=== PATIENT | male | born 1975 | race Caucasian/White ===

== ENCOUNTER 2017-05-16 08:31 | Inpatient (IN) | payer BC ==
[~2017-05-16 08:31] MED LIST: Lactated Ringers 1,000 ML IV SCH; Lidocaine 1% 8 ML ONE; Lidocaine 1%/Sod Bicarbonate in NS 8.4% 1 ML Syringe PRN; Midazolam 1 MG/ML 2 ML SDV ONE; Morphine PF 10 MG/10 ML SDV ONE; Ondansetron 4 MG/2 ML SDV ONE; Propofol 200 MG/20 ML SDV ONE; Sodium Chloride 0.9% 10 ML Syringe FLUSH PRN; ceFAZolin 1 GM Vial ONE; fentaNYL 100 MCG/2 ML SDV ONE
--- NOTE | 2017-05-16 09:20 | PCM.PREANE ---
Preanesthetic Assessment - Procedure Proposed Procedure: R total knee replacement L knee cortisone injection - Anesthesia/Transfusion/Family Hx Anesthesia History: No Prior Anesthesia Family History of Anesthesia Reaction: No Transfusion History: No Prior Transfusion(s) - Review of Systems General: No Symptoms Pulmonary: No Symptoms Cardiovascular: Other (hyperlipidemia ) Gastrointestinal: No Symptoms Neurological: No Symptoms Other: Reports: Diabetes (DM2, gs 127 at 0710) - Physical Assessment NPO Status Date: 05/15/17 NPO Status Time: 21:30 Pulse: 48 O2 Sat by Pulse Oximetry: 96 Respiratory Rate: 16 Blood Pressure: 114/87 Temperature: 36.4 C Height: 1.78 m Weight: 117.934 kg ASA Class: 2 Mental Status: Alert & Oriented x3 Airway Class: Mallampati = 1 Dentition: Reports: Normal Dentition Thyro-Mental Finger Breadths: 3 Mouth Opening Finger Breadths: 3 ROM/Head Extension: Full Lungs: Clear to Auscultation, Normal Respiratory Effort Cardiovascular: Regular Rate, Regular Rhythm - Lab Values: Laboratory Last Values MRSA (PCR) Negative 05/04/17 12:27 - Allergies Allergies/Adverse Reactions: Allergies Allergy/AdvReac Type Severity Reaction Status Date / Time No Known Allergies Allergy Verified 05/13/17 13:20 - Blood Blood Available: No Product(s) Available: None - Anesthesia Plan Pre-Op Medication Ordered: None - Acknowledgements Anesthesia Type Planned: Spinal (with duramorph ) Pt an Appropriate Candidate for the Planned Anesthesia: Yes Alternatives and Risks of Anesthesia Discussed w Pt/Guardian: Yes Pt/Guardian Understands and Agrees with Anesthesia Plan: Yes PreAnesthesia Questionnaire HEENT History: Reports: Impaired Vision, Other (See Below) Other HEENT History: glasses, contacts Cardiovascular History: Reports: High Cholesterol Respiratory History: Reports: None Gastrointestinal History: Reports: None Genitourinary History: Reports: Renal Calculus [employer] MEMBER History: Reports: None Musculoskeletal History: Reports: None Neurological History: Reports: None Psychiatric History: Reports: None Endocrine/Metabolic History: Reports: Diabetes, Type II Hematologic History: Reports: None Immunologic History: Reports: None Oncologic (Cancer) History: Reports: None Dermatologic History: Reports: None - Past Surgical History Head Surgeries/Procedures: Reports: None Cardiovascular Surgical History: Reports: None Respiratory Surgical History: Reports: None GI Surgical History: Reports: None Female Surgical History: Reports: None Male Surgical History: Reports: None Endocrine Surgical History: Reports: None Neurological Surgical History: Reports: None Musculoskeletal Surgical History: Reports: None Oncologic Surgical History: Reports: None Dermatological Surgical History: Reports: None - SUBSTANCE USE Smoking Status *Q: Current Every Day Smoker (chewing tobacco) Tobacco Use Within Last Twelve Months: Smokeless Tobacco (27 years) Second Hand Smoke Exposure: No Days Per Week of Alcohol Use: 2 Number of Drinks Per Day: 5 Total Drinks Per Week: 10 Recreational Drug Use History: No - HOME MEDS Home Medications: Home Meds Aspirin [Pili Chewable Aspirin] 81 mg PO DAILY 05/13/17 [History] Omeprazole Magnesium [Prilosec Otc] 20 mg PO DAILY 05/13/17 [History] atorvaSTATin Calcium [Atorvastatin Calcium] 40 mg PO DAILY 05/13/17 [History] metFORMIN HCl [Metformin HCl] 500 mg PO DAILY 05/13/17 [History] - CURRENT (IN HOUSE) MEDS Current Meds: Current Medications Lactated Ringer's (Ringers, Lactated) 1,000 mls @ 125 mls/hr IV ASDIRECTED ROZ Stop: 05/16/17 23:00 Lidocaine/Sodium Bicarbonate (Buffered Lidocaine 1% In Ns 8.4%) 0.25 ml .XX ONETIME PRN PRN Reason: Prior to IV Start Stop: 05/16/17 18:00 Sodium Chloride (Saline Flush) 10 ml FLUSH ASDIRECTED PRN PRN Reason: Keep Vein Open Stop: 05/16/17 18:00 Discontinued Medications Cefazolin Sodium (Ancef) Confirm Administered Dose 2 gm .ROUTE .STK-MED ONE Stop: 05/16/17 08:06 Fentanyl (Sublimaze) Confirm Administered Dose 100 mcg .ROUTE .STK-MED ONE Stop: 05/16/17 08:07 Lidocaine HCl (Xylocaine-Mpf 1%) Confirm Administered Dose 8 mls @ as directed .ROUTE .STK-MED ONE Stop: 05/16/17 08:06 Midazolam HCl (Versed 1 Mg/Ml) Confirm Administered Dose 2 mg .ROUTE .STK-MED ONE Stop: 05/16/17 08:07 Morphine Sulfate (Duramorph Pf) Confirm Administered Dose 10 mg .ROUTE .STK-MED ONE Stop: 05/16/17 08:07 Ondansetron HCl (Zofran) Confirm Administered Dose 4 mg .ROUTE .STK-MED ONE Stop: 05/16/17 08:06 Propofol (Diprivan 20 Ml) Confirm Administered Dose 600 mg .ROUTE .STK-MED ONE Stop: 05/16/17 08:06 Propofol (Diprivan 20 Ml) Confirm Administered Dose 200 mg .ROUTE .STK-MED ONE Stop: 05/16/17 08:11
[2017-05-16] MEDS ORDERED: Ketamine 500 mg/10 ML MDV ONE (10:24)
[2017-05-16] MEDS ORDERED: Ketorolac 30 MG/ML SDV ONE (10:24)
[2017-05-16] MEDS ORDERED: Lidocaine 1% 2 ML ONE (10:48)
[2017-05-16] MEDS ORDERED: Magnesium Hydroxide 400 MG/5 ML Susp 30 ML Cup PO PRN (10:53)
[2017-05-16] MEDS ORDERED: diphenhydrAMINE 50 MG/ML SDV IVPUSH PRN ×2 (10:53→10:55)
[2017-05-16] MEDS ORDERED: Morphine 2 MG/ML Syringe IVPUSH PRN (10:53)
[2017-05-16] MEDS ORDERED: Sennosides 8.6 MG Tab PO PRN (10:53)
[2017-05-16] MEDS ORDERED: Naloxone 0.4 MG/ML SDV IVPUSH PRN (10:53)
[2017-05-16] MEDS ORDERED: Bisacodyl 5 MG Tab PO PRN (10:53)
[2017-05-16] MEDS ORDERED: Docusate Sodium 100 MG Cap PO PRN (10:53)
[2017-05-16] MEDS ORDERED: Ondansetron 4 MG/2 ML SDV IVPUSH PRN ×2 (10:53→10:55)
[2017-05-16] MEDS ORDERED: fentaNYL 100 MCG/2 ML SDV IVPUSH PRN (10:55)
[2017-05-16] MEDS ORDERED: ePHEDrine 50 MG/ML SDV IVPUSH PRN (10:55)
[2017-05-16] MEDS ORDERED: HYDROmorphone 0.5 MG/0.5 ML Syringe IVPUSH PRN (10:55)
[2017-05-16] MEDS ORDERED: Phenylephrine 1 MG in Sodium Chloride 0.9% 10 ML IV SCH (11:00)
[2017-05-16] MEDS ORDERED: Lactated Ringers 1,000 ML ONE (11:14)
[2017-05-16] MEDS: Iodine/Sodium Iodide 2% Tincture 30 ML Bottle ONE ×2 (11:21→11:54)
[2017-05-16] MEDS: ceFAZolin 1 GM Vial ONE ×2 (11:24→11:58)
[2017-05-16] MEDS: Morphine 8 MG, EPINEPHrine 0.3 MG, Cefuroxime 750 MG, Ketorolac 30 MG, Sodium Chloride ... ONE ×15 (11:25→17:34)
[2017-05-16] MEDS: Vancomycin 1 GM SDV ONE ×2 (11:26→12:08)
[2017-05-16] MEDS: Bupivacaine 0.25% 30 ML SDV ONE ×2 (11:26→12:07)
[2017-05-16] MEDS: Bupivacaine 0.25% 10 ML SDV ONE ×2 (11:27→12:52)
[2017-05-16] MEDS: Triamcinolone Acetonide 40 MG/ML 1 ML MDV ONE ×2 (11:27→12:52)
[2017-05-16] MEDS ORDERED: Midazolam 1 MG/ML 2 ML SDV ONE (12:41)
--- NOTE | 2017-05-16 13:06 | PCM.POSTAN ---
POST ANESTHESIA ASSESSMENT - MENTAL STATUS Mental Status: Alert - VITAL SIGNS Pulse Rate: 64 SaO2: 94 Resp Rate: 12 Blood Pressure: 99/46 Temperature: 36.2 C - RESPIRATORY Respiratory Status: Respiratory Rate WNL, Airway Patent, O2 Saturation Stable, Supplemental Oxygen - CARDIOVASCULAR CV Status: Pulse Rate WNL, Blood Pressure Stable - GASTROINTESTINAL GI Status: No Symptoms - POST OP HYDRATION Hydration Status: Adequate & Stable
--- NOTE | 2017-05-16 14:43 | PCM.CONS ---
H&P History of Present Illness - General Date of Service: 05/16/17 Admit Problem/Dx: Admission Diagnosis/Problem Admission Diagnosis/Problem Arthritis of knee Source of Information: Patient, Family, Old Records, Provider, RN Notes Reviewed History Limitations: Reports: Physical Impairment - History of Present Illness Initial Comments - Free Text/Narative: This is a 42-year-old, white male, with past medical history of HLD, DM2, Hx/o Renal Stones, Chews Tobacco Products and Obesity with BMI of 38 who underwent right total knee arthroplasty and left knee steroid injection post operative day zero. Patient is doing relatively well. Currently, his pain is controlled. He denies any acute issues. Hospital Medicine was consulted for postoperative care. Right Knee Pain Score (Numeric/FACES): 1 - Related Data Allergies/Adverse Reactions: Allergies Allergy/AdvReac Type Severity Reaction Status Date / Time No Known Allergies Allergy Verified 05/13/17 13:20 Home Medications: Home Meds Aspirin [Pili Chewable Aspirin] 81 mg PO DAILY 05/13/17 [History] Omeprazole Magnesium [Prilosec Otc] 20 mg PO DAILY 05/13/17 [History] atorvaSTATin Calcium [Atorvastatin Calcium] 40 mg PO DAILY 05/13/17 [History] metFORMIN HCl [Metformin HCl] 500 mg PO DAILY 05/13/17 [History] Cholecalciferol (Vitamin D3) [Vitamin D] 1 tab PO DAILY 05/16/17 [History] Past Medical History HEENT History: Reports: Impaired Vision, Other (See Below) Other HEENT History: glasses, contacts Cardiovascular History: Reports: High Cholesterol Respiratory History: Reports: None Gastrointestinal History: Reports: None Genitourinary History: Reports: Renal Calculus [employer]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 Musculoskeletal History: Reports: None Neurological History: Reports: None Psychiatric History: Reports: None Endocrine/Metabolic History: Reports: Diabetes, Type II Hematologic History: Reports: None Immunologic History: Reports: None Oncologic (Cancer) History: Reports: None Dermatologic History: Reports: None - Past Surgical History Head Surgeries/Procedures: Reports: None Cardiovascular Surgical History: Reports: None Respiratory Surgical History: Reports: None GI Surgical History: Reports: None Female Surgical History: Reports: None Male Surgical History: Reports: None Endocrine Surgical History: Reports: None Neurological Surgical History: Reports: None Musculoskeletal Surgical History: Reports: None Oncologic Surgical History: Reports: None Dermatological Surgical History: Reports: None Social & Family History - Tobacco Use Smoking Status *Q: Current Every Day Smoker (chewing tobacco) Years of Tobacco use: 30 Packs/Tins Daily: 1 Used Tobacco, but Quit: Yes Month Tobacco Last Used: current Second Hand Smoke Exposure: No - Caffeine Use Caffeine Use: Reports: Coffee - Alcohol Use Days Per Week of Alcohol Use: 2 Number of Drinks Per Day: 5 Total Drinks Per Week: 10 - Recreational Drug Use Recreational Drug Use: No H&P Review of Systems - Review of Systems: Review Of Systems: See Below General: Denies: Fever, Chills, Malaise, Weakness, Fatigue HEENT: Reports: No Symptoms Pulmonary: Denies: Shortness of Breath, Cough Cardiovascular: Denies: Chest Pain, Palpitations, Dyspnea on Exertion Gastrointestinal: Denies: Abdominal Pain, Nausea, Vomiting Genitourinary: Denies: Dysuria, Retention Musculoskeletal: Reports: No Symptoms Skin: Denies: Cyanosis, Erythema, Wound Psychiatric: Denies: Confusion, Depression, Mood Lability, Anxiety, Hallucinations Neurological: Reports: Difficulty Walking, Gait Disturbance. Denies: Confusion , Weakness Hematologic/Lymphatic: Reports: No Symptoms Immunologic: Reports: No Symptoms Exam - Exam Exam: See Below - Vital Signs Vital Signs: Last Vital Signs Temp 35.9 C 05/16/17 13:50 Pulse 45 L 05/16/17 14:05 Resp 11 L 05/16/17 14:05 BP 106/65 05/16/17 14:05 Pulse Ox 97 05/16/17 14:05 Weight: 117.934 kg - Exam General: Alert, Oriented, Cooperative, Other (Obese). No: Mild Distress HEENT: Conjunctiva Clear, EACs Clear, EOMI, Hearing Intact, Mucosa Moist & [place] , Nares Patent, Normal Nasal Septum, Posterior Pharynx Clear, Pupils Equal, Pupils Reactive Neck: Supple, Trachea Midline, +2 Carotid Pulse wo Bruit Lungs: Clear to Auscultation, Normal Respiratory Effort Cardiovascular: Regular Rate, Regular Rhythm GI/Abdominal Exam: Normal Bowel Sounds, Soft, Non-Tender, No Organomegaly, No Distention, No Abnormal Bruit, No Mass (Male) Exam: Other (indwelling natarajan catheter) Rectal (Males) Exam: Deferred Back Exam: Normal Inspection, Decreased Range of Motion Extremities: Normal Inspection, Normal Range of Motion, Non-Tender, No Pedal Edema, Normal Capillary Refill Peripheral Pulses: 3+: Posterior Tibial (L), Posterior Tibial (R), Dorsalis Pedis (L), Dorsalis Pedis (R) Skin: Warm, Dry, Intact Neuro Extensive - Mental Status: Oriented x3, Normal Cognition, Memory Intact Neuro Extensive - Motor, Sensory, Reflexes: CN II-XII Intact, Abnormal Gait Psychiatric: Alert, Normal Affect, Normal Mood - Patient Data Lab Results Last 24 hrs: Laboratory Results - last 24 hr 05/16/17 Range/Units 13:53 POC Glucose 97 (70-105) mg/dL Consult PN Assessment/Plan POD#: 0 Procedures: Procedures COMPLETE CBC W/AUTO DIFF WBC (05/09/17) COMPREHEN METABOLIC PANEL (05/03/17) GLYCOSYLATED HEMOGLOBIN TEST (05/03/17) PROTHROMBIN TIME (05/09/17) ROUTINE VENIPUNCTURE (05/09/17) THROMBOPLASTIN TIME PARTIAL (05/09/17) Problem List Initiated/Reviewed/Updated: Yes Plan: Assessment: Acute: Post-Operative Care State - Stable - Continue to monitor for hemodynamic instability S/p Right Total Knee Arthroplasty With Left Knee Cortisone Injection - Stable - DVT and Pain Management as per primary team Hx/o Chronic Bilateral Knee Pain - Pain Management as per primary team Chronic: HLD DM2 Hx/o Renal Stone Chews Tobacco Product ETOH Use Obesity with BMI of 38 Plan: He is clinically stable Routine AM labs Continue home meds PT/OT consult IS q2 awake Thank you for the opportunity to participate in the management of this patient. Requesting Provider: Dr. Denton Date Consult Requested: 05/16/17 Reason for Consult: Post-Operative Care Patient History Reviewed: Yes Admission H&P Reviewed: Yes Consult Result/Summary: Stable
--- NOTE | 2017-05-16 15:02 | CR ---
Right knee: AP and lateral views of the right knee were obtained. Comparison: No prior study. Knee prosthesis is seen. Components are aligned. Soft tissue air is noted from the surgical procedure. Underlying bony structures are intact. Impression: 1. Recently placed right knee prosthesis. No acute bony abnormality is seen. Diagnostic code #2
[2017-05-16] MEDS ORDERED: Ketorolac 15 MG/ML SDV IVPUSH PRN (18:00)
[2017-05-16] MEDS ORDERED: LORazepam 2 MG/ML MDV IVPUSH PRN (18:11)
[2017-05-16] MEDS ORDERED: hydrALAZINE 20 MG/ML SDV IVPUSH PRN (18:11)
[2017-05-16] MEDS ORDERED: Metoprolol Tartrate 5 MG/5 ML SDV IVPUSH PRN (18:11)
[2017-05-16] MEDS: ceFAZolin 2 GM in Premix Bag 1 BAG IV SCH (18:55)
[2017-05-16] MEDS: Acetaminophen/oxyCODONE 325-5 MG Tab PO PRN (20:53)
[2017-05-16] MEDS: Famotidine 20 MG Tab PO SCH (20:56)
[2017-05-17] MEDS: ceFAZolin 2 GM in Premix Bag 1 BAG IV SCH ×2 (01:01→10:44)
[2017-05-17] MEDS: Acetaminophen/oxyCODONE 325-5 MG Tab PO PRN ×3 (06:25→14:46)
[2017-05-17] MEDS ORDERED: Pantoprazole 40 MG Tab.CR PO SCH (07:00)
[2017-05-17] MEDS ORDERED: Magnesium Oxide 400 MG Tab PO ONE (08:30)
[2017-05-17] MEDS ORDERED: metFORMIN 500 MG Tab PO SCH (09:00)
[2017-05-17] MEDS: Famotidine 20 MG Tab PO SCH (09:00)
[2017-05-17] MEDS ORDERED: Aspirin 325 MG Tab.EC PO SCH (09:00)
[2017-05-17] MEDS ORDERED: Cholecalciferol (Vitamin D3) 1,000 Unit Tab PO SCH (09:00)
[2017-05-17] MEDS ORDERED: Rosuvastatin 10 MG Tab PO SCH (09:00)
--- NOTE | 2017-05-17 09:10 | PCM48HPAN ---
Post Anesthesia Note - EVALUATION WITHIN 48HRS OF ANESTHETIC Vital Signs in Normal Range: Yes Patient Participated in Evaluation: Yes Respiratory Function Stable: Yes Airway Patent: Yes Cardiovascular Function Stable: Yes Hydration Status Stable: Yes Pain Control Satisfactory: Yes Nausea and Vomiting Control Satisfactory: Yes Mental Status Recovered: Yes - COMMENTS/OBSERVATIONS Free Text/Narrative:: Patient reports no problems at this time. Up and walking around. Denies headache , back pain, or numbness and tingling sensations to lower extremities.
--- NOTE | 2017-05-17 10:38 | PCM.CONSN ---
- General Info Date of Service: 05/17/17 Admission Dx/Problem (Free Text): Admission Diagnosis/Problem Admission Diagnosis/Problem Arthritis of knee Functional Status: Reports: Pain Controlled, Tolerating Diet, Ambulating, Urinating, Incentive Spirometry - Review of Systems General: Reports: No Symptoms HEENT: Reports: No Symptoms Pulmonary: Reports: No Symptoms Cardiovascular: Reports: No Symptoms Gastrointestinal: Reports: No Symptoms Genitourinary: Reports: No Symptoms Musculoskeletal: Reports: Leg Pain (mild right knee radiating up leg ). Denies : Neck Pain, Arm Pain, Hand Pain, Back Pain, Foot Pain, Joint Pain, Joint Swelling Skin: Reports: No Symptoms Neurological: Reports: Difficulty Walking, Gait Disturbance. Denies: Confusion , Dizziness, Headache Psychiatric: Reports: No Symptoms Systems Review Comment:: He has no new complaints and feels he is progressing well. He would like to be discharged today and his is available to take him home when discharged. - Patient Data Vitals - Most Recent: Last Vital Signs Temp 97.2 F 05/17/17 07:22 Pulse 49 L 05/17/17 07:22 Resp 12 05/17/17 07:22 BP 122/57 L 05/17/17 07:22 Pulse Ox 94 L 05/17/17 07:22 Weight - Most Recent: 271 lb 1.6 oz I&O - Last 24 Hours: Intake & Output 05/16/17 05/17/17 05/17/17 22:59 06:59 14:59 Intake Total 825 1400 Output Total 700 300 Balance 125 1100 Lab Results Last 24 Hours: Laboratory Results - last 24 hr 05/16/17 05/17/17 05/17/17 Range/Units 13:53 06:15 06:15 WBC 11.11 H (4.23-9.07) K/mm3 RBC 4.76 (4.63-6.08) M/mm3 Hgb 14.0 (13.7-17.5) gm/L Hct 41.1 (40.1-51.0) % MCV 86.3 (79.0-92.2) fl MCH 29.4 (25.7-32.2) pg MCHC 34.1 (32.2-35.5) g/dl RDW Std Deviation 40.9 (35.1-43.9) fL Plt Count 171 (163-337) K/mm3 MPV 11.8 (9.4-12.3) fl Neut % (Auto) 89.0 H (34.0-67.9) % Lymph % (Auto) 5.2 L (21.8-53.1) % Dolores % (Auto) 5.5 (5.3-12.2) % Eos % (Auto) 0 L (0.8-7.0) Baso % (Auto) 0.1 (0.1-1.2) % Neut # (Auto) 9.89 H (1.78-5.38) K/mm3 Lymph # (Auto) 0.58 L (1.32-3.57) K/mm3 Dolores # (Auto) 0.61 (0.30-0.82) K/mm3 Eos # (Auto) 0.00 L (0.04-0.54) K/mm3 Baso # (Auto) 0.01 (0.01-0.08) K/mm3 Manual Slide Review Abnormal smear Sodium 139 (136-145) mEq/L Potassium 4.4 (3.5-5.1) mEq/L Chloride 103 (98-107) mEq/L Carbon Dioxide 28 (21-32) mEq/L Anion Gap 12.4 (5-15) BUN 10 (7-18) mg/dL Creatinine 0.8 (0.7-1.3) mg/dL Est Cr Clr Drug Dosing 121.67 mL/min Estimated GFR (MDRD) > 60 (>60) mL/min BUN/Creatinine Ratio 12.5 L (14-18) Glucose 162 H (74-106) mg/dL POC Glucose 97 (70-105) mg/dL Calcium 9.0 (8.5-10.1) mg/dL Magnesium (1.8-2.4) mg/dl Total Bilirubin 0.6 (0.2-1.0) mg/dL AST 20 (15-37) U/L ALT 29 (16-63) U/L Alkaline Phosphatase 58 (46-116) U/L Total Protein 6.6 (6.4-8.2) g/dl Albumin 3.5 (3.4-5.0) g/dl Globulin 3.1 gm/dL Albumin/Globulin Ratio 1.1 (1-2) 09/19/17 Range/Units 06:15 WBC (4.23-9.07) K/mm3 RBC (4.63-6.08) M/mm3 Hgb (13.7-17.5) gm/L Hct (40.1-51.0) % MCV (79.0-92.2) fl MCH (25.7-32.2) pg MCHC (32.2-35.5) g/dl RDW Std Deviation (35.1-43.9) fL Plt Count (163-337) K/mm3 MPV (9.4-12.3) fl Neut % (Auto) (34.0-67.9) % Lymph % (Auto) (21.8-53.1) % Dolores % (Auto) (5.3-12.2) % Eos % (Auto) (0.8-7.0) Baso % (Auto) (0.1-1.2) % Neut # (Auto) (1.78-5.38) K/mm3 Lymph # (Auto) (1.32-3.57) K/mm3 Dolores # (Auto) (0.30-0.82) K/mm3 Eos # (Auto) (0.04-0.54) K/mm3 Baso # (Auto) (0.01-0.08) K/mm3 Manual Slide Review Sodium (136-145) mEq/L Potassium (3.5-5.1) mEq/L Chloride (98-107) mEq/L Carbon Dioxide (21-32) mEq/L Anion Gap (5-15) BUN (7-18) mg/dL Creatinine (0.7-1.3) mg/dL Est Cr Clr Drug Dosing mL/min Estimated GFR (MDRD) (>60) mL/min BUN/Creatinine Ratio (14-18) Glucose (74-106) mg/dL POC Glucose (70-105) mg/dL Calcium (8.5-10.1) mg/dL Magnesium 1.7 L (1.8-2.4) mg/dl Total Bilirubin (0.2-1.0) mg/dL AST (15-37) U/L ALT (16-63) U/L Alkaline Phosphatase (46-116) U/L Total Protein (6.4-8.2) g/dl Albumin (3.4-5.0) g/dl Globulin gm/dL Albumin/Globulin Ratio (1-2) Med Orders - Current: Current Medications Aspirin (Ecotrin) 325 mg PO BID [facility] Bisacodyl (Dulcolax) 10 mg PO DAILY PRN PRN Reason: Constipation Cholecalciferol (Vitamin D3) 5,000 units PO DAILY [facility] Last Admin: 05/17/17 08:57 Dose: 5,000 units Diphenhydramine HCl (Benadryl) 25 mg IVPUSH Q4H PRN PRN Reason: Nausea Last Admin: 05/16/17 13:05 Dose: 25 mg Docusate Sodium (Colace) 100 mg PO BID PRN PRN Reason: Constipation Famotidine (Pepcid) 20 mg PO BID [facility] Last Admin: 05/17/17 09:00 Dose: 20 mg Hydralazine HCl (Apresoline) 20 mg IVPUSH Q4H PRN PRN Reason: Hypertension Ketorolac Tromethamine (Toradol) 15 mg IVPUSH Q8H PRN PRN Reason: Pain Last Admin: 05/17/17 04:30 Dose: 15 mg Lorazepam (Ativan) 2 mg IVPUSH Q4H PRN PRN Reason: Seizures Magnesium Hydroxide (Milk Of Magnesia) 30 ml PO BID PRN PRN Reason: Constipation Magnesium Sulfate (Pharmacy To Dose - Magnesium Replacement) 0 dose .XX ASDIRECTED PRN PRN Reason: RX TO WATCH MAG LEVELS Metformin HCl (Glucophage) 500 mg PO DAILY [facility] Last Admin: 05/17/17 08:59 Dose: 500 mg Metoprolol Tartrate (Lopressor) 5 mg IVPUSH Q4H PRN PRN Reason: Tachycardia Morphine Sulfate (Morphine) 2 mg IVPUSH Q2H PRN PRN Reason: Breakthrough Pain Naloxone HCl (Narcan) 0.1 mg IVPUSH Q5M PRN PRN Reason: Oversedation Ondansetron HCl (Zofran) 4 mg IVPUSH Q6H PRN PRN Reason: Nausea/Vomiting Oxycodone/Acetaminophen (Percocet 325-5 Mg) 2 tab PO Q4H PRN PRN Reason: Pain Last Admin: 05/17/17 10:23 Dose: 2 tab Pantoprazole Sodium (Protonix) 40 mg PO DAILY@0700 [facility] Last Admin: 05/17/17 06:25 Dose: 40 mg Potassium Chloride (Pharmacy To Dose - Potassium Replacement) 0 dose .XX ASDIRECTED PRN PRN Reason: RX TO WATCH K LEVELS Rosuvastatin Calcium (Crestor) 10 mg PO DAILY [facility] Last Admin: 05/17/17 08:58 Dose: 10 mg Senna (Senna) 8.6 mg PO BID PRN PRN Reason: Constipation Discontinued Medications Bupivacaine HCl (Sensorcaine-Mpf 0.25%) Confirm Administered Dose 10 ml .ROUTE .STK-MED ONE Stop: 05/16/17 09:15 Last Admin: 05/16/17 12:52 Dose: 4 ml Bupivacaine HCl (Marcaine 0.25%) Confirm Administered Dose 30 ml .ROUTE .STK- MED ONE Stop: 05/16/17 09:15 Last Admin: 05/16/17 12:07 Dose: 30 ml Cefazolin Sodium (Ancef) Confirm Administered Dose 2 gm .ROUTE .STK-MED ONE Stop: 05/16/17 08:06 Cefazolin Sodium (Ancef) Confirm Administered Dose 2 gm .ROUTE .STK-MED ONE Stop: 05/16/17 09:14 Last Admin: 05/16/17 11:58 Dose: 2 gm Morphine Sulfate 8 mg/Epinephrine HCl 0.3 mg/Cefuroxime Sodium 750 mg/Ketorolac Tromethamine 30 mg/Sodium Chloride 17.9 ml 0 mg .XX ONETIME ONE Stop: 05/16/17 10:50 Last Admin: 05/16/17 17:34 Dose: Not Given Diphenhydramine HCl (Benadryl) 25 mg IVPUSH Q6H PRN PRN Reason: pruritis Stop: 05/16/17 14:00 Ephedrine Sulfate (Ephedrine Sulfate) 5 mg IVPUSH ASDIRECTED PRN PRN Reason: Hypotension Stop: 05/16/17 14:00 Fentanyl (Sublimaze) Confirm Administered Dose 100 mcg .ROUTE .STK-MED ONE Stop: 05/16/17 08:07 Fentanyl (Sublimaze) 50 mcg IVPUSH Q5M PRN PRN Reason: Pain Stop: 05/16/17 14:00 Hydromorphone HCl (Dilaudid) 0.5 mg IVPUSH Q15M PRN PRN Reason: severe pain Stop: 05/16/17 14:00 Lactated Ringer's (Ringers, Lactated) 1,000 mls @ 125 mls/hr IV ASDIRECTED [facility] Stop: 05/16/17 23:00 Last Admin: 05/16/17 09:05 Dose: 125 mls/hr Lidocaine HCl (Xylocaine-Mpf 1%) Confirm Administered Dose 8 mls @ as directed .ROUTE .STK-MED ONE Stop: 05/16/17 08:06 Lidocaine HCl (Xylocaine-Mpf 1%) Confirm Administered Dose 2 mls @ as directed .ROUTE .STK-MED ONE Stop: 05/16/17 10:49 Phenylephrine HCl 1 mg/ Sodium (Chloride) 10.1 mls @ 1 mls/sec IV TITRATE [facility] PRN Reason: Protocol Stop: 05/16/17 14:00 Cefazolin Sodium/Dextrose 2 gm (/ Premix) 50 mls @ 100 mls/hr IV Q8H [facility] Stop: 05/17/17 10:29 Last Admin: 05/17/17 01:01 Dose: 100 mls/hr Lactated Ringer's (Ringers, Lactated) Confirm Administered Dose 1,000 mls @ as directed .ROUTE .STK-MED ONE Stop: 05/16/17 11:15 Iodine (Iodine 2% Mild Tincture) Confirm Administered Dose 30 ml .ROUTE .STK- MED ONE Stop: 05/16/17 09:15 Last Admin: 05/16/17 11:54 Dose: 18 ml Ketamine HCl (Ketalar) Confirm Administered Dose 500 mg .ROUTE .STK-MED ONE Stop: 05/16/17 10:25 Ketorolac Tromethamine (Toradol) Confirm Administered Dose 30 mg .ROUTE .STK- MED ONE Stop: 05/16/17 10:25 Lidocaine/Sodium Bicarbonate (Buffered Lidocaine 1% In Ns 8.4%) 0.25 ml .XX ONETIME PRN PRN Reason: Prior to IV Start Stop: 05/16/17 18:00 Last Admin: 05/16/17 09:04 Dose: 0.25 ml Magnesium Oxide (Magnesium Oxide) 800 mg PO ONETIME ONE Stop: 05/17/17 08:31 Last Admin: 05/17/17 08:59 Dose: 800 mg Midazolam HCl (Versed 1 Mg/Ml) Confirm Administered Dose 2 mg .ROUTE .STK-MED ONE Stop: 05/16/17 08:07 Midazolam HCl (Versed 1 Mg/Ml) Confirm Administered Dose 2 mg .ROUTE .STK-MED ONE Stop: 05/16/17 12:42 Morphine Sulfate (Duramorph Pf) Confirm Administered Dose 10 mg .ROUTE .STK-MED ONE Stop: 05/16/17 08:07 Ondansetron HCl (Zofran) Confirm Administered Dose 4 mg .ROUTE .STK-MED ONE Stop: 05/16/17 08:06 Ondansetron HCl (Zofran) 4 mg IVPUSH ONETIME PRN PRN Reason: Nausea/Vomiting Stop: 05/16/17 14:00 Propofol (Diprivan 20 Ml) Confirm Administered Dose 600 mg .ROUTE .STK-MED ONE Stop: 05/16/17 08:06 Propofol (Diprivan 20 Ml) Confirm Administered Dose 200 mg .ROUTE .STK-MED ONE Stop: 05/16/17 08:11 Sodium Chloride (Saline Flush) 10 ml FLUSH ASDIRECTED PRN PRN Reason: Keep Vein Open Stop: 05/16/17 18:00 Tranexamic Acid (Cyklokapron) Confirm Administered Dose 1,000 mg .ROUTE .STK- MED ONE Stop: 05/16/17 09:15 Last Admin: 05/16/17 12:15 Dose: 1,000 mg Triamcinolone Acetonide (Kenalog-40) Confirm Administered Dose 80 mg .ROUTE .STK -MED ONE Stop: 05/16/17 09:14 Last Admin: 05/16/17 12:52 Dose: 80 mg Vancomycin HCl (Vancomycin) Confirm Administered Dose 1 gm .ROUTE .STK-MED ONE Stop: 05/16/17 09:15 Last Admin: 05/16/17 12:08 Dose: 1 gm - Exam Quality Assessment: DVT Prophylaxis General: Alert, Oriented, Cooperative HEENT: Pupils Equal, Pupils Reactive, Mucous Membr. Moist/[address] Lane Neck: Supple, Trachea Midline, No JVD Lungs: Clear to Auscultation, Decreased Breath Sounds Cardiovascular: Regular Rate, Regular Rhythm GI/Abdominal Exam: Normal Bowel Sounds, Soft, Non-Tender, No Distention, No Mass (Male) Exam: Deferred Back Exam: Normal Inspection, Full Range of Motion Extremities: Normal Inspection, Normal Range of Motion (left leg and bilateral arms ), Leg Pain (right leg ), Limited Range of Motion (right leg ). No: Increased Warmth Peripheral Pulses: 2+: Radial (L), Radial (R), Dorsalis Pedis (L), Dorsalis Pedis (R) Skin: Warm, Dry, Intact Wound/Incisions: Dressing Dry and Intact, No Drainage Neurological: Strength Equal Bilateral, Sensation Intact. No: Normal Gait Psy/Mental Status: Alert, Normal Affect, Normal Mood Physical Findings Comments:: He is clinically stable. No complaints at this time. Consult PN Assessment/Plan POD#: 1 Procedures: Procedures COMPLETE CBC W/AUTO DIFF WBC (05/09/17) COMPREHEN METABOLIC PANEL (05/03/17) GLYCOSYLATED HEMOGLOBIN TEST (05/03/17) PROTHROMBIN TIME (05/09/17) ROUTINE VENIPUNCTURE (05/09/17) THROMBOPLASTIN TIME PARTIAL (05/09/17) (1) Status post right knee replacement SNOMED Code(s): 537476220, 530472799, 330635485 Code(s): Z96.651 - PRESENCE OF RIGHT ARTIFICIAL KNEE JOINT Priority: High Current Visit: Yes (2) Diabetes SNOMED Code(s): 12555912 Code(s): E11.9 - TYPE 2 DIABETES MELLITUS WITHOUT COMPLICATIONS Priority: High Current Visit: Yes Qualifiers: Diabetes mellitus type: type 2 Diabetes mellitus complication status: with unspecified complications Diabetes mellitus skilled nursing insulin use: unspecified termite helper insulin use status Qualified Code(s): E11.8 - Type 2 diabetes mellitus with unspecified complications (3) Tobacco use disorder SNOMED Code(s): 907628061, 087210353 Code(s): F17.200 - NICOTINE DEPENDENCE, UNSPECIFIED, UNCOMPLICATED Priority : Low Current Visit: Yes (4) Hyperlipidemia SNOMED Code(s): 86334913 Code(s): E78.5 - HYPERLIPIDEMIA, UNSPECIFIED Priority: Low Current Visit : No (5) Obesity (BMI 30-39.9) SNOMED Code(s): 593325950, 159127753 Code(s): E66.9 - OBESITY, UNSPECIFIED Priority: Low Current Visit: No Problem List Initiated/Reviewed/Updated: Yes Plan: Plan: Assessment: Acute: Post-Operative Care State - Stable - Continue to monitor for hemodynamic instability - Hgb 14 - Plt 171 S/p Right Total Knee Arthroplasty With Left Knee Cortisone Injection - Stable - DVT and Pain Management as per primary team Hx/o Chronic Bilateral Knee Pain - Pain Management as per primary team Chronic: HLD DM2 Hx/o Renal Stone Chews Tobacco Product - will provide cessation materials ETOH Use Obesity with BMI of 38 Plan: He is clinically stable Routine AM labs Continue home meds PT/OT consult IS q2 awake Thank you for the opportunity to participate in the management of this patient. Requesting Provider: Dr. Denton Date Consult Requested: 05/16/17 Reason for Consult: Post-Operative Care Patient History Reviewed: Yes Admission H&P Reviewed: Yes Consult Result/Summary: Stable From a medical standpoint this patient is clear for discharge. Thank you!
[2017-05-17 13:31] VITALS: BP 128/81
--- NOTE | 2017-05-19 15:04 | PCM.DCSUM1 ---
Discharge Summary - Hospital Course Brief History: Geremias is a 42 yo male who underwent right TKA with left knee injection with Dr. Denton on 05-16-2017. The procedure was completed under spinal anesthesia. The pt tolerated the procedure well and was admitted to the Medical -Surgical Unit. Medical management was provided by the Hospitalist service. The pt's Hospital course was uneventful. The pt's Hgb on POD#1 was 14.0. On POD#1, 325mg BID was initiated for VTE prophylaxis. SCDs and TEDs were also ordered. A Mepilex dressing was placed at the incision site at the time of surgery and remained clean and dry. The pt participated in P.T. and O.T. and progressed well. The pt was allowed to WBAT. On POD#1, the pt was deemed appropriate to discharge to home. - Discharge Data Discharge Date: 05/17/17 Discharge Disposition: Home, Self-Care 01 Condition: Good - Patient Summary/Data Consults: Consultations 05/16/17 10:53 Consult to Case Management [CONS] Routine Consult to Physician [CONS] Routine OT Evaluation and Treatment [CONS] Routine 05/16/17 10:57 PT Evaluation and Treatment [CONS] Routine - Patient Instructions Diet: Usual Diet as Tolerated Activity: Apply Ice, As Tolerated, Elevate Extremity, Full Weight Bearing Driving: Do Not Drive Showering/Bathing: May Shower Wound/Incision Care: Keep Operative Site/Wound Site Clean and Dry, Do NOT Change Dressing Notify Provider of: Fever, Increased Pain, Swelling and Redness, Drainage, Nausea and/or Vomiting Other/Special Instructions: Please get up and moving around every hour while awake. This helps to prevent blood clots. Please use your walker and have help as needed. Take a 325mg ASPIRIN TWICE DAILY. This also helps to prevent blood clots. The aspirin is being used for blood clot prevention and not for pain management, so please do not miss a dose of the medication. Do the exercises you were taught in the Hospital. Schedule for P.T. Use the pain medication as needed. The medication may cause drowsiness and constipation. Contact your primary care provider for instructions if you are constipated. You may use a stool softener like docusate sodium or Colace 100mg twice daily and/or a laxative like Miralax daily for constipation. Use the ice machine often. Elevate the limb to decrease swelling. Keep the Mepilex dressing in place until follow-up at the Clinic. Notify the Clinic if the dressing is saturated. Wear the MEKHI hose during the day and you may remove these at night. Eat a diet high in protein as this well help with healing. Schedule an appointment with your primary care provider for 'routine post-op care'. Call the Clinic with questions or concerns - [phone]. - Discharge Plan Prescriptions/Med Rec: Acetaminophen/oxyCODONE [Percocet 325-5 MG] 2 tab PO Q4H PRN #60 tablet PRN Reason: Pain Aspirin [Ecotrin] 325 mg PO BID #84 tab.ec Home Medications: Home Meds Omeprazole Magnesium [Prilosec Otc] 20 mg PO DAILY 05/13/17 [History] atorvaSTATin Calcium [Atorvastatin Calcium] 40 mg PO DAILY 05/13/17 [History] metFORMIN HCl [Metformin HCl] 500 mg PO DAILY 05/13/17 [History] Cholecalciferol (Vitamin D3) [Vitamin D] 1 tab PO DAILY 05/16/17 [History] Acetaminophen/oxyCODONE [Percocet 325-5 MG] 2 tab PO Q4H PRN #60 tablet [Rx] Aspirin [Ecotrin] 325 mg PO BID #84 tab.ec 05/17/17 [Rx] Patient Handouts: Cancer of the Tongue, Total Knee Replacement, Care After, [id number]-Hhlg, Total Knee Replacement, Tkdd-[id number], Smokeless Tobacco Use, Aspirin, ASA oral tablets, Knee Rehabilitation Guidelines Following Surgery, Tobacco Use Disorder, 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 Follow-up with on 05/24/17 at 1:00pm. Please check in at 12:45pm. 2. Follow-up with Elaina Buchanan PA-C on 05/31/17 at 1:15pm. Please check in at 1: 00pm.) - Patient Data Vitals - Most Recent: Last Vital Signs Temp 97.2 F 05/17/17 12:19 Pulse 54 L 05/17/17 12:19 Resp 20 05/17/17 12:19 BP 128/81 09/19/17 12:19 Pulse Ox 95 05/17/17 12:19 Weight - Most Recent: 271 lb 1.6 oz Med Orders - Current: Current Medications Discontinued Medications Aspirin (Ecotrin) 325 mg PO BID [facility] Last Admin: 05/17/17 09:00 Dose: 325 mg Bisacodyl (Dulcolax) 10 mg PO DAILY PRN PRN Reason: Constipation Bupivacaine HCl (Sensorcaine-Mpf 0.25%) Confirm Administered Dose 10 ml .ROUTE .STK-MED ONE Stop: 05/16/17 09:15 Last Admin: 05/16/17 12:52 Dose: 4 ml Bupivacaine HCl (Marcaine 0.25%) Confirm Administered Dose 30 ml .ROUTE .STK- MED ONE Stop: 05/16/17 09:15 Last Admin: 05/16/17 12:07 Dose: 30 ml Cefazolin Sodium (Ancef) Confirm Administered Dose 2 gm .ROUTE .STK-MED ONE Stop: 05/16/17 08:06 Cefazolin Sodium (Ancef) Confirm Administered Dose 2 gm .ROUTE .STK-MED ONE Stop: 05/16/17 09:14 Last Admin: 05/16/17 11:58 Dose: 2 gm Cholecalciferol (Vitamin D3) 5,000 units PO DAILY [facility] Last Admin: 05/17/17 08:57 Dose: 5,000 units Morphine Sulfate 8 mg/Epinephrine HCl 0.3 mg/Cefuroxime Sodium 750 mg/Ketorolac Tromethamine 30 mg/Sodium Chloride 17.9 ml 0 mg .XX ONETIME ONE Stop: 05/16/17 10:50 Last Admin: 05/16/17 17:34 Dose: Not Given Diphenhydramine HCl (Benadryl) 25 mg IVPUSH Q6H PRN PRN Reason: pruritis Stop: 05/16/17 14:00 Diphenhydramine HCl (Benadryl) 25 mg IVPUSH Q4H PRN PRN Reason: Nausea Last Admin: 05/16/17 13:05 Dose: 25 mg Docusate Sodium (Colace) 100 mg PO BID PRN PRN Reason: Constipation Ephedrine Sulfate (Ephedrine Sulfate) 5 mg IVPUSH ASDIRECTED PRN PRN Reason: Hypotension Stop: 05/16/17 14:00 Famotidine (Pepcid) 20 mg PO BID [facility] Last Admin: 05/17/17 09:00 Dose: 20 mg Fentanyl (Sublimaze) Confirm Administered Dose 100 mcg .ROUTE .STK-MED ONE Stop: 05/16/17 08:07 Fentanyl (Sublimaze) 50 mcg IVPUSH Q5M PRN PRN Reason: Pain Stop: 05/16/17 14:00 Hydralazine HCl (Apresoline) 20 mg IVPUSH Q4H PRN PRN Reason: Hypertension Hydromorphone HCl (Dilaudid) 0.5 mg IVPUSH Q15M PRN PRN Reason: severe pain Stop: 05/16/17 14:00 Lactated Ringer's (Ringers, Lactated) 1,000 mls @ 125 mls/hr IV ASDIRECTED [facility] Stop: 05/16/17 23:00 Last Admin: 05/16/17 09:05 Dose: 125 mls/hr Lidocaine HCl (Xylocaine-Mpf 1%) Confirm Administered Dose 8 mls @ as directed .ROUTE .STK-MED ONE Stop: 05/16/17 08:06 Lidocaine HCl (Xylocaine-Mpf 1%) Confirm Administered Dose 2 mls @ as directed .ROUTE .STK-MED ONE Stop: 05/16/17 10:49 Phenylephrine HCl 1 mg/ Sodium (Chloride) 10.1 mls @ 1 mls/sec IV TITRATE [facility] PRN Reason: Protocol Stop: 05/16/17 14:00 Cefazolin Sodium/Dextrose 2 gm (/ Premix) 50 mls @ 100 mls/hr IV Q8H [facility] Stop: 05/17/17 10:29 Last Admin: 05/17/17 10:44 Dose: 100 mls/hr Lactated Ringer's (Ringers, Lactated) Confirm Administered Dose 1,000 mls @ as directed .ROUTE .STK-MED ONE Stop: 05/16/17 11:15 Iodine (Iodine 2% Mild Tincture) Confirm Administered Dose 30 ml .ROUTE .STK- MED ONE Stop: 05/16/17 09:15 Last Admin: 05/16/17 11:54 Dose: 18 ml Ketamine HCl (Ketalar) Confirm Administered Dose 500 mg .ROUTE .STK-MED ONE Stop: 05/16/17 10:25 Ketorolac Tromethamine (Toradol) Confirm Administered Dose 30 mg .ROUTE .STK- MED ONE Stop: 05/16/17 10:25 Ketorolac Tromethamine (Toradol) 15 mg IVPUSH Q8H PRN PRN Reason: Pain Last Admin: 05/17/17 04:30 Dose: 15 mg Lidocaine/Sodium Bicarbonate (Buffered Lidocaine 1% In Ns 8.4%) 0.25 ml .XX ONETIME PRN PRN Reason: Prior to IV Start Stop: 05/16/17 18:00 Last Admin: 05/16/17 09:04 Dose: 0.25 ml Lorazepam (Ativan) 2 mg IVPUSH Q4H PRN PRN Reason: Seizures Magnesium Hydroxide (Milk Of Magnesia) 30 ml PO BID PRN PRN Reason: Constipation Magnesium Oxide (Magnesium Oxide) 800 mg PO ONETIME ONE Stop: 05/17/17 08:31 Last Admin: 05/17/17 08:59 Dose: 800 mg Magnesium Sulfate (Pharmacy To Dose - Magnesium Replacement) 0 dose .XX ASDIRECTED PRN PRN Reason: RX TO WATCH MAG LEVELS Metformin HCl (Glucophage) 500 mg PO DAILY [facility] Last Admin: 05/17/17 08:59 Dose: 500 mg Metoprolol Tartrate (Lopressor) 5 mg IVPUSH Q4H PRN PRN Reason: Tachycardia Midazolam HCl (Versed 1 Mg/Ml) Confirm Administered Dose 2 mg .ROUTE .STK-MED ONE Stop: 05/16/17 08:07 Midazolam HCl (Versed 1 Mg/Ml) Confirm Administered Dose 2 mg .ROUTE .STK-MED ONE Stop: 05/16/17 12:42 Morphine Sulfate (Duramorph Pf) Confirm Administered Dose 10 mg .ROUTE .STK-MED ONE Stop: 05/16/17 08:07 Morphine Sulfate (Morphine) 2 mg IVPUSH Q2H PRN PRN Reason: Breakthrough Pain Naloxone HCl (Narcan) 0.1 mg IVPUSH Q5M PRN PRN Reason: Oversedation Ondansetron HCl (Zofran) Confirm Administered Dose 4 mg .ROUTE .STK-MED ONE Stop: 05/16/17 08:06 Ondansetron HCl (Zofran) 4 mg IVPUSH ONETIME PRN PRN Reason: Nausea/Vomiting Stop: 05/16/17 14:00 Ondansetron HCl (Zofran) 4 mg IVPUSH Q6H PRN PRN Reason: Nausea/Vomiting Oxycodone/Acetaminophen (Percocet 325-5 Mg) 2 tab PO Q4H PRN PRN Reason: Pain Last Admin: 05/17/17 14:46 Dose: 2 tab Pantoprazole Sodium (Protonix) 40 mg PO DAILY@0700 [facility] Last Admin: 05/17/17 06:25 Dose: 40 mg Potassium Chloride (Pharmacy To Dose - Potassium Replacement) 0 dose .XX ASDIRECTED PRN PRN Reason: RX TO WATCH K LEVELS Propofol (Diprivan 20 Ml) Confirm Administered Dose 600 mg .ROUTE .STK-MED ONE Stop: 05/16/17 08:06 Propofol (Diprivan 20 Ml) Confirm Administered Dose 200 mg .ROUTE .STK-MED ONE Stop: 05/16/17 08:11 Rosuvastatin Calcium (Crestor) 10 mg PO DAILY [facility] Last Admin: 05/17/17 08:58 Dose: 10 mg Senna (Senna) 8.6 mg PO BID PRN PRN Reason: Constipation Sodium Chloride (Saline Flush) 10 ml FLUSH ASDIRECTED PRN PRN Reason: Keep Vein Open Stop: 05/16/17 18:00 Tranexamic Acid (Cyklokapron) Confirm Administered Dose 1,000 mg .ROUTE .STK- MED ONE Stop: 05/16/17 09:15 Last Admin: 05/16/17 12:15 Dose: 1,000 mg Triamcinolone Acetonide (Kenalog-40) Confirm Administered Dose 80 mg .ROUTE .STK -MED ONE Stop: 05/16/17 09:14 Last Admin: 05/16/17 12:52 Dose: 80 mg Vancomycin HCl (Vancomycin) Confirm Administered Dose 1 gm .ROUTE .STK-MED ONE Stop: 05/16/17 09:15 Last Admin: 05/16/17 12:08 Dose: 1 gm *Q Meaningful Use (DIS) - VTE *Q VTE Criteria *Q: - Stroke *Q Stroke Criteria *Q: - AMI *Q AMI Criteria *Q:
--- NOTE | 2017-05-26 22:02 | PCM.OPNOTE ---
- General Post-Op/Procedure Note Date of Surgery/Procedure: 05/16/17 Operative Procedure(s): right total knee arthroplasty with left knee corticosteroid injection Pre Op Diagnosis: bilateral knee osteoarthrosis Post-Op Diagnosis: Same Anesthesia Technique: Local, MAC, Spinal Primary Surgeon: Nazario Denton Anesthesia Provider: Ana Luisa Allen Paste Maker: Elaina Buchanan Paste Maker: Marilee Jones EBL in mLs: 200 Complications: None Condition: Good
--- NOTE | 2017-05-26 22:51 | OR ---
DATE OF OPERATION: 05/16/2017 SURGEON: Nazario Denton MD OPERATION PERFORMED: Right total knee arthroplasty with left knee corticosteroid injection. PREOPERATIVE DIAGNOSIS: Bilateral knee osteoarthrosis. POSTOPERATIVE DIAGNOSIS: Bilateral knee osteoarthrosis. ANESTHESIA: Local MAC with spinal. ANESTHESIA PROVIDER: Ana Luisa Allen CRNA. ASSISTANTS: 1. Elaina Buchanan PA-C. 2. Marilee Jones LPN. ESTIMATED BLOOD LOSS: 200 mL. COMPLICATIONS: None. CONDITION: Stable. IMPLANT: 1. Crys size 6 press-fit PS femur. 2. Crys size 5 press-fit universal tibial baseplate. 3. Crys size 5, 9 mm PS X3 polyethylene. 4. [place] 32 x 10 mm asymmetric press-fit patella. DESCRIPTION OF PROCEDURE: The patient was identified in the preop holding area. Proper site was marked and identified by the surgeon. The patient was taken back to the operating theater where after adequate anesthesia, the patient's right lower extremity had a nonsterile tourniquet applied and was then sterilely prepped and draped in the usual sterile fashion. OR time-out was performed. The patient received 2 g IV Ancef. The right lower extremity was then exsanguinated. Tourniquet was insufflated to 250 mmHg. Standard skin incision was made, and medial parapatellar arthrotomy was then created. Deep fibers of the MCL were raised, and the anterior fat pad was resected. Attention was turned to the patella. Patella measured a 24 and resected to 14 for a 32 x 10 mm patella. Drill holes were then drilled and found to be in an adequate position. Attention was turned to the distal femur. Drill hole was placed in the distal femur just anterior to the PCL insertion. Intramedullary distal femoral cutting guide was then placed and 8 mm was resected off the distal femur. It was found to be an adequate resection. Sizing guide was placed. It was found to be a size 6 epicondylar access. Holes were then drilled using Morgan's line and epicondyles as reference. A 4-in-1 cutting block was then placed. Using first size 6 and the anterior and posterior chamfer cuts were then completed. Box cut was then completed for a size 6. Attention was turned to the tibia. Posterior, medial, and lateral retractors were placed, and the extramedullary tibial cutting guide was placed in the old footprint of the ACL. This was aligned with the second ray and at the center of the ankle. At this time, 9 mm was measured off the unaffected side, and slope was set for roughly 0-30 degrees. At this time, resection was carried out. It was found to be an adequate resection. The medial and lateral meniscus were removed along with any posterior osteophytes. Trial components were placed, and it was found that the size 5 tibial baseplate was found to have adequate coverage. Trial components were then placed. The patient had knee in full extension, flexion, and the drop lila showed it in good alignment. Patella was tracking centrally. At this time, the size 5 baseplate was stamped and the drilled holes for the pegs for the press-fit tibia were then drilled. The size 5 press-fit [place] tibia was then impacted into place. The size 6 press-fit femur was then impacted into place, and a 9 mm PS X3 polyethylene was impacted into place. The 32 x 10 mm patella was then impacted into place. It was compressed in a press-fit fashion. At this time, tourniquet was deflated. All bleeders were cauterized. 1 L of dilute Betadine solution along with 3 L pulse lavage irrigation with Ancef was then run through the right knee. Periarticular injection was then completed. The patient's knee was brought through a range of motion. It was found to be stable throughout range of motion. Patella was tracking centrally. Vancomycin powder along with topical tranexamic acid was then used. #2 barbed suture was used for closure of the medial parapatellar arthrotomy, 2-0 Vicryl was used subcutaneously and running 3-0 Monocryl. Prineo was used for the skin. The patient had a sterile soft dressing applied. After this, 2 mL of 40 mg Kenalog and 4 mL of 0.25% Marcaine were injected in the left knee under sterile technique. The patient tolerated both procedures well. VENU /[id number]
== END 2017-05-17 15:20 | disposition home or self-care (01) | DRG 302 ==
LOC: JD.MS 08:31
PROVIDERS: ADMIT Orthopaedic Surgery; ATTEND Orthopaedic Surgery
PROC: 0SRC0J9 Replacement of Right Knee Joint with Synthetic Substitute, Cemented, Open Approach (ICD-10-PCS; principal; 2017-05-16)
PROC: 3E0U33Z Introduction of Anti-inflammatory into Joints, Percutaneous Approach (ICD-10-PCS; 2017-05-16)
PROC: 3E0U3BZ Introduction of Anesthetic Agent into Joints, Percutaneous Approach (ICD-10-PCS; 2017-05-16)
DX: M17.0 Bilateral primary osteoarthritis of knee (principal); I97.89 Other postprocedural complications and disorders of the circulatory system, not elsewhere classified; E78.5 Hyperlipidemia, unspecified; E11.9 Type 2 diabetes mellitus without complications; H54.7 Unspecified visual loss; F17.220 Nicotine dependence, chewing tobacco, uncomplicated; Z79.84 Long term (current) use of oral hypoglycemic drugs; Z79.899 Other long term (current) drug therapy; E66.9 Obesity, unspecified; Z68.38 Body mass index [BMI] 38.0-38.9, adult; F10.10 Alcohol abuse, uncomplicated
CPT/HCPCS: 01402; 36415; 73560-26-RT; 73560-RT; 80053; 82962; 83735; 85025; 87641; 94762; 97110-GP; 97116-GP; 97161-GP; 97166-GO; 97535-GO; A9270-GY; C1776; J0171; J0690; J0697; J1200; J1885; J2250; J2270; J2405; J2704; J3010; J3301; J3370; J3490; J7120

== ENCOUNTER 2023-06-01 09:40 | Day surgery (SDC) | payer OTHER ==
[~2023-06-01 09:40] MED LIST changes: -Lidocaine 1% 8 ML ONE; -Lidocaine 1%/Sod Bicarbonate in NS 8.4% 1 ML Syringe PRN; -Midazolam 1 MG/ML 2 ML SDV ONE; -Morphine PF 10 MG/10 ML SDV ONE; -Ondansetron 4 MG/2 ML SDV ONE; -Propofol 200 MG/20 ML SDV ONE; +Sodium Chloride 0.9% 10 ML Syringe FLUSH SCH; -ceFAZolin 1 GM Vial ONE; -fentaNYL 100 MCG/2 ML SDV ONE
[2023-06-01] MEDS ORDERED: Midazolam 1 MG/ML 2 ML SDV ONE (11:19)
[2023-06-01] MEDS ORDERED: Lidocaine 1% 4 ML ONE (11:19)
[2023-06-01] MEDS ORDERED: Propofol 200 MG/20 ML SDV ONE ×2 (11:19→11:22)
[2023-06-01 13:07] VITALS: BP 106/66; PULSE 62
== END 2023-06-01 13:00 | disposition home or self-care (01) ==
LOC: JD.SDS 09:40
PROVIDERS: ATTEND Surgery
DX: Z12.11 Encounter for screening for malignant neoplasm of colon (principal); D12.8 Benign neoplasm of rectum; D12.4 Benign neoplasm of descending colon; D12.0 Benign neoplasm of cecum; D12.3 Benign neoplasm of transverse colon; D12.5 Benign neoplasm of sigmoid colon; K64.8 Other hemorrhoids; E11.9 Type 2 diabetes mellitus without complications; G89.29 Other chronic pain; M25.561 Pain in right knee; E78.00 Pure hypercholesterolemia, unspecified; I10 Essential (primary) hypertension; K21.9 Gastro-esophageal reflux disease without esophagitis; Z85.01 Personal history of malignant neoplasm of esophagus; Z90.49 Acquired absence of other specified parts of digestive tract; Z79.84 Long term (current) use of oral hypoglycemic drugs; Z79.899 Other long term (current) drug therapy; Z87.891 Personal history of nicotine dependence; Z79.82 Long term (current) use of aspirin
CPT/HCPCS: 45380; 45381; 45385; 82947; J2250; J2704; J7120; 00811; J3490